=== PATIENT | female | born 1940 | race Caucasian/White ===

== ENCOUNTER 2019-03-20 07:39 | Day surgery (SDC) | payer MEDICARE, OTHER ==
[2019-03-20] MEDS: LACTATED RINGER'S 1,000 ML IV (09:16)
[2019-03-20] MEDS ORDERED: PROPOFOL 100 ML (11:41)
[2019-03-20] MEDS ORDERED: FENTAnyl 50 MCG/ML VIAL (11:43)
[2019-03-20] MEDS ORDERED: LIDOCAINE 2% (SDV) 5 ML INJ (11:43)
[2019-03-20] MEDS ORDERED: EPHEDrine 25 MG/5 ML SYG IV (12:30)
[2019-03-20] MEDS ORDERED: KETOROLAC 30 MG INJ IV (12:30)
[2019-03-20] MEDS ORDERED: LABETALOL HCL 20MG INJ IV (12:30)
[2019-03-20] MEDS ORDERED: hydrALAzine 20 MG INJ IV (12:30)
[2019-03-20] MEDS ORDERED: ALBUTEROL 0.083% (NEB) 2.5 MG/3 ML AMP HHN (12:30)
[2019-03-20] MEDS ORDERED: DIPHENHYDRAMINE 50 MG INJ IV (12:30)
[2019-03-20] MEDS ORDERED: METOCLOPRAMIDE 10 MG INJ IV (12:30)
[2019-03-20] MEDS ORDERED: MEPERIDINE 25 MG INJ IV (12:30)
[2019-03-20] MEDS ORDERED: ONDANSETRON 4 MG INJ IV (12:30)
[2019-03-20] MEDS ORDERED: FENTAnyl 50 MCG/ML VIAL IV ×2 (12:30)
== END 2019-03-20 14:10 | disposition home or self-care (01) ==
LOC: SDS 07:39
DX: H65.23 Chronic serous otitis media, bilateral (principal); J45.909 Unspecified asthma, uncomplicated; E03.9 Hypothyroidism, unspecified
CPT/HCPCS: 69436